=== PATIENT | female | born 1995 ===

== ENCOUNTER 2017-11-14 03:52 | Emergency (ER) | payer SELFPAY ==
[2017-11-14] MEDS ORDERED: NS 1,000 ML IV ONE ×2 (04:10→04:56)
--- NOTE | 2017-11-14 04:11 | EDPHY ---
H & P Stated Complaint: Stabbing abd pain Time Seen by Provider: 11/14/17 04:10 HPI/ROS: HPI CHIEF COMPLAINT: Abdominal Pain and Rash HISTORY OF PRESENT ILLNESS: Patient is a 22-year-old female, she is otherwise healthy she does not take any daily medications she presents emergency room at 4 o'clock in the morning with abdominal pain. She states her abdominal pain started Monday morning around 8 or 9:00 a.m. She initially described as crampy however it has progressed throughout Monday and Monday and into Monday night it has become more severe and constant is now located around the periumbilical region and right lower quadrant. She denies any adnexal pain. Denies vaginal discharge. Denies urinary symptoms. Denies fever. Denies vomiting. She did have 1 episode of nonbloody diarrhea on Monday. She did go to urgent care around 2:00 p.m. Today for assessment of her abdominal pain but was told they were unable to evaluate her abdominal pain and referred her to the ER. She decided not come to the emergency room until now. States the pain got worse around 9:00 p.m. Last night it is currently 6/10 periumbilical region. It does not go to her back. Additionally she has a rash. She states this started around 9:00 p.m. Last night she has a pruritic rash. It appears to be urticaria on her belly and upper legs. She does not any trouble breathing. Does not have trouble swallowing. States the only medication she may have taken was Tums last night when her abdominal pain got worse. But she reports that the rash was already present. The on thing she could think of his new she had some fish on Monday. She reports to me that she completed her menstrual cycle 5 days ago he was a 4 to five-day cycle normal for her and normal timing. Past Medical History: Denies medical history Past Surgical History: Denies surgical history Social History: Denies drugs alcohol tobacco. Family History: Noncontributory ROS REVIEW OF SYSTEMS: A comprehensive 10 point review of systems is otherwise negative aside from elements mentioned in the history of present illness. Exam Constitutional . It is appears nontoxic no acute distress, triage nursing summary reviewed, vital signs reviewed, awake/alert. Eyes normal conjunctivae and sclera, EOMI, PERRLA. HENT normal inspection, atraumatic, moist mucus membranes, no epistaxis, neck supple/ no meningismus, no raccoon eyes. Respiratory clear to auscultation bilaterally, normal breath sounds, no respiratory distress, no wheezing. Cardiovascular rate normal, regular rhythm, no murmur, no edema, distal pulses normal. Gastrointestinal mild tender palpation periumbilical region and right lower quadrant, normal bowel sounds, no distension, no pulsatile mass. Genitourinary no CVA tenderness. Musculoskeletal no midline vertebral tenderness, full range of motion, no calf swelling, no tenderness of extremities, no meningismus, good pulses, neurovascularly intact. Skin pink, warm, & dry, no rash, skin atraumatic. Neurologic awake, alert and oriented x 3, AAOx3, moves all 4 extremities equally, motor intact, sensory intact, CN II-XII intact, normal cerebellar, normal vision, normal speech. Psychiatric normal mood/affect. Heme/Lymph/Immune no lymphadenopathy. Differential Diagnosis: Differential diagnosis includes but is not limited to and in no particular order: Bowel obstruction, appendicitis, gallbladder disease, diverticulitis, colitis, enteritis, perforated viscus, gastritis, GERD , esophagitis, urinary tract infection, pyelonephritis, kidney stones, urticaria from allergic reaction, food allergy, medication allergy, HSP, vasculitis, autoimmune disease Medical Decision Making: Plan for this patient IV establishment blood draw, check abdominal labs including lactic acid, test, urinalysis, CT scan abdomen pelvis with IV contrast additionally treat urticaria Benadryl Solu- Medrol and Pepcid. And re-evaluate. Re-evaluation: 0500: Patient's urinalysis reviewed. This shows nitrite positive urinary tract infection. I did send urine culture. I did order 1 g Rocephin however we are out of it and the picks this. I switched her to Zosyn. CT scan abdomen pelvis with IV contrast showed no signs of acute appendicitis. Normal appendix visualized by Dr. Stockton. Does show some right ovarian cyst. Trace free fluid. Bladder is decompressed. Urinalysis shows cystitis/UTI. 0508: Updated patient about blood work, urinalysis, CT scan. 0512: Notified to me by nursing staff that we also do not have Zosyn in the pyxis. Will ask pharmacy at [facility] over a g Rocephin. Meanwhile will order her a dose of Keflex here p.o.. She is getting her 2nd L fluid at this time. I did reexamine her rash. Urticaria is completely resolved. I will placed on Benadryl Pepcid, I will hold steroids she has an active urinary tract infection. Will treat with Keflex. Urine culture sent. I did discussed return precautions with her she understands return emergency room she develops worsening abdominal pain fever vomiting. 0520AM: I did update the patient about current over the g Rocephin from [facility]. She is comfortable this plan she is comfortable waiting. Meanwhile she received IV Toradol for pain control 2nd L fluid, p. o. Keflex and p.o. Peridium. She additionally is comfortable going home. After she received her IV Rocephin she may be discharged. She understands return precautions. 0648AM: Patient is receiving 1 g of IV Rocephin at this time. After Rocephin given patient discharged home. - Personal History LMP (Females 10-55): 1-7 Days Ago Current Tetanus/Diphtheria Vaccine: Unsure Current Tetanus Diphtheria and Acellular Pertussis (TDAP): Unsure - Medical/Surgical History Hx Asthma: Yes Hx Chronic Respiratory Disease: No Hx Diabetes: No Hx Cardiac Disease: No Hx Renal Disease: No Hx Cirrhosis: No Hx Alcoholism: No Hx HIV/AIDS: No Hx Splenectomy or Spleen Trauma: No Other PMH: Denies - Social History Smoking Status: Never smoked Constitutional: Initial Vital Signs Temperature (C) 37.2 C 11/14/17 04:00 Heart Rate 113 H 11/14/17 04:00 Respiratory Rate 17 11/14/17 04:00 Blood Pressure 128/89 H 11/14/17 04:00 O2 Sat (%) 98 11/14/17 04:00 O2 Delivery Mode Room Air Allergies/Adverse Reactions: No Known Allergies Allergy (Unverified 11/14/17 04:04) Home Medications: Medication Instructions Recorded Cephalexin [Keflex] 500 mg PO Q6H #28 cap 11/14/17 Famotidine [Pepcid 20 MG (*)] 20 mg PO BID #6 tab 11/14/17 Phenazopyridine HCl [Pyridium] 200 mg PO TID #15 tab 11/14/17 diphenhydrAMINE [Benadryl 25 MG 25 mg PO BID #6 tab 11/14/17 (*)] Medical Decision Making - Data Points Laboratory Results: Laboratory Results 11/14/17 04:05 11/14/17 04:05 11/14/17 11/14/17 11/14/17 04:22 04:05 04:05 WBC RBC Hgb Hct MCV MCH MCHC RDW Plt Count MPV Neut % (Auto) Lymph % (Auto) Tompkins % (Auto) Eos % (Auto) Baso % (Auto) Nucleat RBC Rel Count Absolute Neuts (auto) Absolute Lymphs (auto) Absolute Monos (auto) Absolute Eos (auto) Absolute Basos (auto) Absolute Nucleated RBC Immature Gran % Immature Gran # VBG Lactic Acid Sodium 141 mEq/L mEq/L (135-145) Potassium 3.7 mEq/L mEq/L (3.3-5.0) Chloride 104 mEq/L mEq/L (97-110) Carbon Dioxide 22 mEq/l mEq/l (22-31) Anion Gap 15 mEq/L mEq/L (8-16) BUN 9 mg/dL mg/dL (7-23) Creatinine 0.7 mg/dL mg/dL (0.6-1.0) Estimated GFR > 60 Glucose 102 mg/dL H mg/dL (70-100) Calcium 10.4 mg/dL mg/dL (8.5-10.4) Total Bilirubin 1.4 mg/dL mg/dL (0.1-1.4) Conjugated Bilirubin 0.3 mg/dL mg/dL (0.0-0.5) Unconjugated Bilirubin 1.1 mg/dL mg/dL (0.0-1.1) AST 16 IU/L IU/L (14-46) ALT 16 IU/L IU/L (9-52) Alkaline Phosphatase 110 IU/L IU/L (38-126) Total Protein 8.0 g/dL g/dL (6.3-8.2) Albumin 4.4 g/dL g/dL (3.5-5.0) Lipase 85 IU/L IU/L (23-300) Beta HCG, Qual NEGATIVE Urine Color YELLOW Urine Appearance CLEAR Urine pH 5.0 (5.0-7.5) Ur Specific Peever >= 1.030 (1.002-1.030) Urine Protein NEGATIVE (NEGATIVE) Urine Ketones 3+ H (NEGATIVE) Urine Blood TRACE H (NEGATIVE) Urine Nitrate POSITIVE H (NEGATIVE) Urine Bilirubin NEGATIVE (NEGATIVE) Urine Urobilinogen 0.2 EU EU (0.2-1.0) Ur Leukocyte Esterase NEGATIVE (NEGATIVE) Urine RBC 1-3 /hpf /hpf (0-3) Urine WBC 1-3 /hpf /hpf (0-3) Ur Epithelial Cells 1+ /lpf /lpf (NONE-1+) Urine Bacteria 4+ /hpf H /hpf (NONE SEEN) Urine Mucus 3+ /lpf H /lpf (NONE-1+) Urine Glucose NEGATIVE (NEGATIVE) 11/14/17 11/14/17 04:05 04:05 WBC 11.35 10^3/uL H 10^3/uL (3.80-9.50) RBC 5.07 10^6/uL 10^6/uL (4.18-5.33) Hgb 14.9 g/dL g/dL (12.6-16.3) Hct 44.6 % % (38.0-47.0) MCV 88.0 fL fL (81.5-99.8) MCH 29.4 pg pg (27.9-34.1) MCHC 33.4 g/dL g/dL (32.4-36.7) RDW 13.0 % % (11.5-15.2) Plt Count 258 10^3/uL 10^3/uL (150-400) MPV 10.0 fL fL (8.7-11.7) Neut % (Auto) 67.5 % % (39.3-74.2) Lymph % (Auto) 24.1 % % (15.0-45.0) Tompkins % (Auto) 5.5 % % (4.5-13.0) Eos % (Auto) 2.5 % % (0.6-7.6) Baso % (Auto) 0.2 % L % (0.3-1.7) Nucleat RBC Rel Count 0.0 % % (0.0-0.2) Absolute Neuts (auto) 7.68 10^3/uL H 10^3/uL (1.70-6.50) Absolute Lymphs (auto) 2.73 10^3/uL 10^3/uL (1.00-3.00) Absolute Monos (auto) 0.62 10^3/uL 10^3/uL (0.30-0.80) Absolute Eos (auto) 0.28 10^3/uL 10^3/uL (0.03-0.40) Absolute Basos (auto) 0.02 10^3/uL 10^3/uL (0.02-0.10) Absolute Nucleated RBC 0.00 10^3/uL 10^3/uL (0-0.01) Immature Gran % 0.2 % % (0.0-1.1) Immature Gran # 0.02 10^3/uL 10^3/uL (0.00-0.10) VBG Lactic Acid 1.5 mmol/L mmol/L (0.7-2.1) Sodium Potassium Chloride Carbon Dioxide Anion Gap BUN Creatinine Estimated GFR Glucose Calcium Total Bilirubin Conjugated Bilirubin Unconjugated Bilirubin AST ALT Alkaline Phosphatase Total Protein Albumin Lipase Beta HCG, Qual Urine Color Urine Appearance Urine pH Ur Specific Peever Urine Protein Urine Ketones Urine Blood Urine Nitrate Urine Bilirubin Urine Urobilinogen Ur Leukocyte Esterase Urine RBC Urine WBC Ur Epithelial Cells Urine Bacteria Urine Mucus Urine Glucose Medications Given: Discontinued Medications Cephalexin (Keflex 500 Mg Prepack#4) 1 btl TAKEHOME EDNOW ONE PRN Reason: Protocol Stop: 11/14/17 05:13 Last Admin: 11/14/17 05:31 Dose: 1 btl Cephalexin HCl (Keflex) 500 mg PO EDNOW ONE PRN Reason: Protocol Stop: 11/14/17 05:13 Last Admin: 11/14/17 05:33 Dose: 500 mg Diphenhydramine HCl (Benadryl Injection) 25 mg IVP EDNOW ONE Stop: 11/14/17 04:17 Last Admin: 11/14/17 04:25 Dose: 25 mg Famotidine (Pepcid) 20 mg IVP EDNOW ONE Stop: 11/14/17 04:17 Last Admin: 11/14/17 04:25 Dose: 20 mg Sodium Chloride (Ns) 1,000 mls @ 0 mls/hr IV EDNOW ONE; Wide Open PRN Reason: Protocol Stop: 11/14/17 04:11 Last Admin: 11/14/17 04:17 Dose: 1,000 mls Ceftriaxone Sodium/Dextrose (Rocephin 1 Gm (Premix)) 50 mls @ 100 mls/hr IV EDNOW ONE PRN Reason: Protocol Stop: 11/14/17 05:25 Last Admin: 11/14/17 06:40 Dose: 50 mls Sodium Chloride (Ns) 1,000 mls @ 0 mls/hr IV ONCE ONE PRN Reason: Wide Open Stop: 11/14/17 04:57 Last Admin: 11/14/17 05:33 Dose: 1,000 mls Piperacillin/Tazobactam/Dextrose (Zosyn (Premix)) 100 mls @ 200 mls/hr IV EDNOW ONE PRN Reason: Protocol Stop: 11/14/17 05:28 Last Admin: 11/14/17 06:45 Dose: Not Given Ketorolac Tromethamine (Toradol) 15 mg IVP EDNOW ONE Stop: 11/14/17 05:15 Last Admin: 11/14/17 05:34 Dose: 15 mg Methylprednisolone Sodium Succinate (Solu-Medrol) 125 mg IVP EDNOW ONE Stop: 11/14/17 04:17 Last Admin: 11/14/17 04:25 Dose: 125 mg Phenazopyridine HCl (Pyridium) 200 mg PO EDNOW ONE Stop: 11/14/17 05:14 Last Admin: 11/14/17 05:33 Dose: 200 mg Departure - Departure Disposition: [facility] Inpatient Acute Clinical Impression: Urticaria Abdominal pain Qualifiers: Abdominal location: lower abdomen, unspecified Qualified Code(s): R10.30 - Lower abdominal pain, unspecified UTI (urinary tract infection) Qualifiers: Urinary tract infection type: acute cystitis Hematuria presence: with hematuria Qualified Code(s): N30.01 - Acute cystitis with hematuria Condition: Fair Instructions: Urinary Tract Infection in Women (ED), Urticaria (ED), Allergies (ED) Additional Instructions: 1. Drink lots of fluids stay well-hydrated. 2. Take your antibitoics as prescribed. 3. Return to the ER if worsening symptoms, fever, vomiting, abdominal pain, worsening rash. 4. If your abdominal pain gets worse, he developed fever, or vomiting return to the ER. 5. Additionally monitor your rash closely. If he gets worsening rash or trouble breathing trouble swallowing or you feel like your itching more return to the ER. Referrals: Patient,NotPresent [Primary Care Provider] - As per Instructions Prescriptions: Cephalexin [Keflex] 500 mg PO Q6H #28 cap diphenhydrAMINE [Benadryl 25 MG (*)] 25 mg PO BID #6 tab Famotidine [Pepcid 20 MG (*)] 20 mg PO BID #6 tab Phenazopyridine HCl [Pyridium] 200 mg PO TID #15 tab
[2017-11-14] MEDS ORDERED: methylPREDNISolone SOD SUCC 125 MG/2 ML VIAL IVP ONE (04:16)
[2017-11-14] MEDS ORDERED: FAMOTIDINE 20 MG/2 ML SDV IVP ONE (04:16)
[2017-11-14 04:17] LABS: PLATELET COUNT 258 10^3/uL (150-400)
[2017-11-14] MEDS ORDERED: IOPAMIDOL (ISOVUE-300) 100 ML BTL ONE (04:31)
[2017-11-14] MEDS ORDERED: PIPERACILLIN/TAZO 4.5 GM/DEX 100 ML IV ONE (04:59)
[2017-11-14] MEDS ORDERED: CEPHALEXIN 500MG PREPACK#4 BTL TAKEHOME ONE (05:12)
[2017-11-14] MEDS ORDERED: CEPHALEXIN 500 MG CAP PO ONE (05:12)
[2017-11-14] MEDS ORDERED: PHENAZOPYRIDINE HCL 200 MG TAB PO ONE (05:13)
[2017-11-14] MEDS ORDERED: KETOROLAC 15 MG/1 ML SDV IVP ONE (05:14)
[2017-11-14 07:50] VITALS: BP 100/65
== END 2017-11-14 07:18 | disposition home or self-care (01) ==
LOC: CED 03:52
DX: N30.01 Acute cystitis with hematuria (principal); L50.9 Urticaria, unspecified; J45.909 Unspecified asthma, uncomplicated; E86.9 Volume depletion, unspecified
CPT/HCPCS: 74177-PO; 80048-PO; 80076-PO; 81003-PO; 81015-PO; 83605-PO; 83690-PO; 84703-PO; 85025-PO; 96365; J0696; J1200; J1885; J2543; J2930; Q9967